=== PATIENT | male | born 1950 | race American Indian/Alaskan Native ===

== ENCOUNTER 2019-02-25 08:18 | Inpatient (IN) | payer MEDICARE ==
--- NOTE | 2019-02-25 08:40 | Emergency Department Report ---
ED General Adult HPI - General Chief complaint: Dental/Oral Stated complaint: DIFFICULTY SWOLLOWING Time Seen by Provider: 02/25/19 08:32 Source: patient, RN notes reviewed, old records reviewed Mode of arrival: Ambulatory Limitations: No Limitations - History of Present Illness Initial comments: This is a 68-year-old gentleman. The patient is not known to this provider previously. Past history includes high cholesterol, questionable elevated blood pressure. Also has a history of stroke, and cervical spine surgery in the distant past. Patient presents to the emergency room today with a complaint of inability to swallow and dysphagia to solids, for 2-3 weeks. He is able to drink liquids. He denies physical pain. Symptoms intermittently, worsened with attempting to swallow, decreased with rest. They do not radiate anywhere, and they do not have other exacerbating or relieving factors, with the exception of not attempting to eat, or drink, which decreases his symptoms. -: Gradual, week(s) Consistency: intermittent Improves with: other Worsens with: other - Related Data Previous Rx's Medication Instructions Recorded Last Taken Type Aspirin [Aspirin TAB] 325 mg PO QDAY #30 tablet 11/09/13 Unknown Rx Simvastatin 40 mg PO QHS #30 tablet 11/09/13 Unknown Rx hydroCHLOROthiazide [Hctz] 12.5 mg PO QDAY #30 capsule 11/09/13 Unknown Rx predniSONE [Deltasone] 20 mg PO QDAY #3 tab 01/21/16 Unknown Rx traMADol [Ultram] 50 mg PO Q6HR PRN #16 tablet 01/21/16 Unknown Rx Allergies Allergy/AdvReac Type Severity Reaction Status Date / Time No Known Allergies Allergy Verified 01/21/16 09:34 ED Review of Systems ROS: Stated complaint: DIFFICULTY SWOLLOWING Other details as noted in HPI Constitutional: denies: fever Eyes: denies: eye discharge ENT: denies: epistaxis Respiratory: denies: cough Cardiovascular: denies: chest pain Gastrointestinal: nausea, vomiting. 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 - Surgical History Past Surgical History?: Yes Additional Surgical History: HERNIATED DISC / CERVICAL SURGERY - Social History Smoking Status: Never Smoker Substance Use Type: None - Medications Home Medications: Home Medications Medication Instructions Recorded Confirmed Last Taken Type Aspirin [Aspirin TAB] 325 mg PO QDAY #30 tablet 11/09/13 Unknown Rx Simvastatin 40 mg PO QHS #30 tablet 11/09/13 Unknown Rx hydroCHLOROthiazide [Hctz] 12.5 mg PO QDAY #30 capsule 11/09/13 Unknown Rx predniSONE [Deltasone] 20 mg PO QDAY #3 tab 01/21/16 Unknown Rx traMADol [Ultram] 50 mg PO Q6HR PRN #16 tablet 01/21/16 Unknown Rx ED Physical Exam - General Limitations: No Limitations General appearance: alert, in no apparent distress - Head Head exam: Present: atraumatic, normocephalic - Eye Eye exam: Present: normal appearance, EOMI - ENT ENT exam: Present: normal exam, normal orophraynx, mucous membranes moist, normal external ear exam, other (patient has poor dentition. The patient is speaking in full sentences. There is no stridor.) - Neck Neck exam: Present: normal inspection, full ROM. Absent: tenderness, meningismu s - Respiratory Respiratory exam: Present: normal lung sounds bilaterally. Absent: respiratory distress - Cardiovascular Cardiovascular Exam: Present: regular rate, normal rhythm, normal heart sounds. Absent: bradycardia, tachycardia, irregular rhythm, systolic murmur, diastolic murmur, rubs, gallop - GI/Abdominal GI/Abdominal exam: Present: soft. Absent: distended, tenderness, guarding, rebound, rigid, pulsatile mass - Rectal Rectal exam: Present: deferred - Extremities Exam Extremities exam: Present: normal inspection, full ROM, other (2+ pulses noted in the bilateral upper, lower extremities. Compartments soft. No long bony tenderness. The pelvis is stable.). Absent: tenderness, pedal edema, joint swelling, calf tenderness - Back Exam Back exam: Present: normal inspection, full ROM. Absent: tenderness, CVA tenderness (R), paraspinal tenderness, vertebral tenderness - Neurological Exam Neurological exam: Present: alert, normal gait, other (Extraocular movements intact. Tongue midline. No facial droop. Facial sensation intact to light touch in the V1, V2, V3 distribution bilaterally. 5 and 5 strength in 4 extremities.. Sensation is intact to light touch in 4 extremities.). Absent: motor sensory deficit - Psychiatric Psychiatric exam: Present: normal affect, normal mood - Skin Skin exam: Present: warm, dry, intact, normal color. Absent: rash ED Course Vital Signs 02/25/19 02/25/19 02/25/19 08:23 08:37 08:45 Temperature 98.2 F Pulse Rate 91 H 71 68 Respiratory 18 25 H 19 Rate Blood Pressure 143/75 127/70 O2 Sat by Pulse 96 100 99 Oximetry 02/25/19 02/25/19 02/25/19 09:00 09:15 09:31 Temperature Pulse Rate 64 67 72 Respiratory 21 18 20 Rate Blood Pressure 131/75 131/75 131/75 O2 Sat by Pulse 100 93 95 Oximetry 02/25/19 02/25/19 02/25/19 10:27 10:31 10:45 Temperature Pulse Rate Respiratory Rate Blood Pressure 131/75 131/75 131/75 O2 Sat by Pulse 97 85 100 Oximetry 02/25/19 02/25/19 02/25/19 11:00 11:15 11:31 Temperature Pulse Rate Respiratory Rate Blood Pressure 117/65 131/75 131/75 O2 Sat by Pulse 73 L 99 86 Oximetry 02/25/19 02/25/19 02/25/19 12:29 12:34 13:14 Temperature 97.5 F L 97.5 F L 97.5 F L Pulse Rate 72 72 85 Respiratory 21 21 16 Rate Blood Pressure 122/72 122/72 83/53 O2 Sat by Pulse 99 99 97 Oximetry 02/25/19 13:29 Temperature Pulse Rate 70 Respiratory 25 H Rate Blood Pressure 120/70 O2 Sat by Pulse 96 Oximetry - Reevaluation(s) Reevaluation #1: 02/25/19 11:20 Differential diagnosis, including without limited to: Dysphagia, esophageal stricture, aspiration pneumonia Assessment and plan: 68-year-old gentleman with probable dysphasia. Plain films negative for significant disease, chronic findings noted, barium swallow study has confirmed mid esophageal stricture, with confirmed dysphagia, and minimal aspiration. Clinically, based off of the history and physical examination, do not suspect active aspiration pneumonia at this time. Patient will remain nothing by mouth. His screening laboratory studies are reviewed and appreciated. We have contacted gastroenterology nurse practitioner, Ms. Donna Sullivan, who works with Dr. Lambert Tay, she recommends the patient be maintained on nothing by mouth, her group will evaluate the patient shortly, and they will attempt to get the patient to the endoscopy lab today for definitive management and evaluation. I have discussed patient's barium swallow x-ray findings and laboratory studies, with the patient and his significant other, they have verbalized understanding, and we are awaiting gastroenterology consultation currently. Reevaluation #2: 02/25/19 13:40 Gastroenterology consultation reviewed and appreciated. They have recommended admission for inability to successfully dilated esophageal stricture. Hospital physician, Dr. Mena, who has accepted the patient to the medical service. ED Medical Decision Making - Lab Data Result diagrams: 02/25/19 08:56 02/25/19 11:03 Vital Signs 02/25/19 02/25/19 02/25/19 08:23 08:37 08:45 Temperature 98.2 F Pulse Rate 91 H 71 68 Respiratory 18 25 H 19 Rate Blood Pressure 143/75 127/70 O2 Sat by Pulse 96 100 99 Oximetry 02/25/19 02/25/19 09:00 09:15 Temperature Pulse Rate 64 67 Respiratory 21 18 Rate Blood Pressure 131/75 131/75 O2 Sat by Pulse 100 93 Oximetry Lab Results 02/25/19 02/25/19 Range/Units 08:56 08:56 WBC 7.1 (4.5-11.0) K/mm3 RBC 4.28 (3.65-5.03) M/mm3 Hgb 14.2 (11.8-15.2) gm/dl Hct 41.3 (35.5-45.6) % MCV 97 H (84-94) fl MCH 33 H (28-32) pg MCHC 35 H (32-34) % RDW 12.6 L (13.2-15.2) % Plt Count 362 (140-440) K/mm3 Sodium 132 L (137-145) mmol/L Potassium 5.4 H (3.6-5.0) mmol/L Chloride 97.3 L (98-107) mmol/L Carbon Dioxide 21 L (22-30) mmol/L Anion Gap 19 mmol/L BUN 17 (9-20) mg/dL Creatinine 1.0 (0.8-1.5) mg/dL Estimated GFR > 60 ml/min BUN/Creatinine Ratio 17 % Glucose 99 (75-100) mg/dL Calcium 9.3 (8.4-10.2) mg/dL Magnesium 2.20 (1.7-2.3) mg/dL Total Creatine Kinase 104 (55-170) units/L - Radiology Data Radiology results: report reviewed, image reviewed Critical care attestation.: If time is entered above; I have spent that time in minutes in the direct care of this critically ill patient, excluding procedure time. ED Disposition Clinical Impression: Dysphagia, Esophageal stricture Disposition: OP ADMIT IP TO THIS HOSP Is pt being admited?: Yes Condition: Good Referrals: EDILMA TINSLEY MD [Primary Care Provider] - 3-5 Days
[2019-02-25 09:05] LABS: Hematocrit 41.3 % (35.5-45.6); Hemoglobin 14.2 gm/dl (11.8-15.2); Mean Corpuscular HGB Conc 35 % (32-34); Mean Corpuscular Volume 97 fl (84-94); Platelet Count 362 K/mm3 (140-440); Red Blood Count 4.28 M/mm3 (3.65-5.03); Red Cell Distribution Width 12.6 % (13.2-15.2)
[2019-02-25 09:23] LABS: BUN/Creatinine Ratio 17; Blood Urea Nitrogen 17 mg/dL (9-20); Calcium 9.3 mg/dL (8.4-10.2); Hemolysis Index 16
--- NOTE | 2019-02-25 10:23 | XRay Report ---
CHEST 2 VIEWS INDICATION: Dysphagia. COMPARISON: None similar. FINDINGS: PA and lateral chest radiographs demonstrate normal cardiomediastinal silhouette. Clear, well-expanded lungs. No pleural effusions or CHF. Mid to lower thoracic spine degenerative osteophytes. Demineralized bones. CONCLUSION: No acute chest process, as described. Thank you for the opportunity to participate in this patient's care.
--- NOTE | 2019-02-25 10:27 | XRay Report ---
NECK SOFT TISSUE RADIOGRAPHS INDICATION: Dysphagia. COMPARISON: None similar. FINDINGS: AP and lateral radiographs demonstrate normal prevertebral soft tissues and preserved airway. Demineralized bones with multilevel degenerative changes, including C6-C7 and C7-T1 moderate to severe disc narrowing and degenerative spurring. C3-C4 anterior plate and screw fusion hardware also seen. Grossly intact craniocervical articulation. Atherosclerotic bilateral carotid and aortic arch calcifications. Clear visualized lung apices. CONCLUSION: No acute neck soft tissue radiographic abnormality with various other findings, including C3-C4 fusion and multilevel cervical spondylosis, as described. Thank you for the opportunity to participate in this patient's care.
--- NOTE | 2019-02-25 10:47 | Fluoroscopy Report ---
BARIUM SWALLOW INDICATION: Dysphagia. COMPARISON: None similar. IMAGES/CINE CLIPS: 24 FINDINGS: Barium swallow performed. Patient swallowed thick barium without any difficulty as also tolerated effervescent granules well. Initial few swallows with thick barium demonstrate dilated proximal to mid esophagus up to the level of the mary lou with abrupt, moderate to severe conical tapering and grossly smooth haddad. Some contrast noted passing beyond and opacifying the lower half of the esophagus, GE junction and into grossly unremarkable stomach, duodenum and proximal opacified small bowel. Slight aspiration also noted. Demineralized bones with multilevel degenerative changes and cervical fusion hardware also seen. CONCLUSION: Mid-esophageal stricture/narrowing, dilated proximal esophagus and slight aspiration noted with various other findings, including spinal degenerative and postsurgical changes, as described above. GI/endoscopic correlation suggested. I phoned the above results to Dr. Humphries in the ER, 10:40 AM, 02/25/2019. Thank you for the opportunity to participate in this patient's care.
[2019-02-25] MEDS ORDERED: NACL 0.9% 1000 ML 1,000 ML IV SCH (12:00)
--- NOTE | 2019-02-25 12:08 | Gastroenterology Consultation ---
<ABDOUL GLASGOW - Last Filed: 02/25/19 12:09> History of Present Illness - Reason for Consult Consult date: 02/25/19 dysphagia Requesting physician: SYBIL CHRISTY - History of Present Illness Patient is a 68 y/o male with PMH of HTN, CVA (2012 with left sided deficit), and arthritis who presented to ED with dysphagia to which GI has been consulted. This morning patient was resting in bed w/o acute distress. Reports difficulty swallowing both solids and liquids x 3 weeks. Admits to associated chest discomfort and 15lb wt loss. Denies fever, SOB, abd pain, odynophagia, signs of bleeding, or LGI symptoms. No N/V but states his food regurgitates back up after eating. On ASA at home. No hx of GERD. Former smoker. No Fhx of GI cancers. Past History Past Medical History: other (per HPI) Past Surgical History: Other (HERNIATED DISC / CERVICAL SURGERY) Social history: other (former smoker) Medications and Allergies Allergies Allergy/AdvReac Type Severity Reaction Status Date / Time No Known Allergies Allergy Verified 01/21/16 09:34 Home Medications Medication Instructions Recorded Confirmed Last Taken Type Aspirin [Aspirin TAB] 325 mg PO QDAY #30 tablet 11/09/13 Unknown Rx Simvastatin 40 mg PO QHS #30 tablet 11/09/13 Unknown Rx hydroCHLOROthiazide [Hctz] 12.5 mg PO QDAY #30 capsule 11/09/13 Unknown Rx predniSONE [Deltasone] 20 mg PO QDAY #3 tab 01/21/16 Unknown Rx traMADol [Ultram] 50 mg PO Q6HR PRN #16 tablet 01/21/16 Unknown Rx Active Meds: Active Medications Sodium Chloride (Nacl 0.9% 1000 Ml) 1,000 mls @ 50 mls/hr IV DIRECT LETITIA medications reviewed/updated as required Review of Systems - Review of Systems All systems: negative Gastrointestinal: other (dysphagia) Exam - Constitutional Vital Signs: Temp Pulse Resp BP Pulse Ox 98.2 F 72 20 131/75 86 02/25/19 08:23 02/25/19 09:31 02/25/19 09:31 02/25/19 11:31 02/25/19 11:31 General appearance: no acute distress - EENT Eyes: PERRL, EOM intact ENT: hearing intact - Respiratory Respiratory: bilateral: CTA - Cardiovascular Rhythm: regular - Gastrointestinal General gastrointestinal: Present: soft, non-tender, non-distended, normal bowel sounds - Neurologic Neurological: alert and oriented x3 - Labs CBC & Chem 7: 02/25/19 08:56 02/25/19 11:03 Lab Results: Laboratory Results - last 24 hr 02/25/19 02/25/19 02/25/19 08:56 08:56 11:03 WBC 7.1 RBC 4.28 Hgb 14.2 Hct 41.3 MCV 97 H MCH 33 H MCHC 35 H RDW 12.6 L Plt Count 362 Sodium 132 L Potassium 5.4 H 5.0 Chloride 97.3 L Carbon Dioxide 21 L Anion Gap 19 BUN 17 Creatinine 1.0 Estimated GFR > 60 BUN/Creatinine Ratio 17 Glucose 99 Calcium 9.3 Magnesium 2.20 Total Creatine Kinase 104 Assessment and Plan 1.dysphagia -patient reports difficulty swallowing both solids and liquids x 3 weeks with associated chest discomfort and wt loss of 15lbs -barium swallow upon showed mid-esophageal stricture/narrowing,dilated proximal esophagus, and slight aspiration -will schedule for EGD today for further evaluation -Keep NPO -continue supportive care -will follow <ANDERSON PRO R - Last Filed: 02/25/19 12:55> Medications and Allergies Active Meds: Active Medications Sodium Chloride (Nacl 0.9% 1000 Ml) 1,000 mls @ 50 mls/hr IV DIRECT LETITIA Exam - Constitutional Vital Signs: Temp Pulse Resp BP Pulse Ox 97.5 F L 72 21 122/72 99 02/25/19 12:34 02/25/19 12:34 02/25/19 12:34 02/25/19 12:34 02/25/19 12:34 - Labs CBC & Chem 7: 02/25/19 08:56 02/25/19 11:03 Lab Results: Laboratory Results - last 24 hr 02/25/19 02/25/19 02/25/19 08:56 08:56 11:03 WBC 7.1 RBC 4.28 Hgb 14.2 Hct 41.3 MCV 97 H MCH 33 H MCHC 35 H RDW 12.6 L Plt Count 362 Sodium 132 L Potassium 5.4 H 5.0 Chloride 97.3 L Carbon Dioxide 21 L Anion Gap 19 BUN 17 Creatinine 1.0 Estimated GFR > 60 BUN/Creatinine Ratio 17 Glucose 99 Calcium 9.3 Magnesium 2.20 Total Creatine Kinase 104 Assessment and Plan Pt with acute onset dysphagia x 3 wks, with weight loss. Rare HB. Ba swallow as noted. Worrisome for neoplasm. Will do EGD/dil/biopsy today.
[2019-02-25] MEDS ORDERED: NACL 0.9% 1000 ML 1,000 ML ONE (12:51)
--- NOTE | 2019-02-25 13:13 | Post Operative Note ---
Pre-op diagnosis: Esophageal stricture Post-op diagnosis: other (Mid-esophageal stricture, with ulcerated mucosal tear) Findings: 1. Esophageal stricture located at 28 cm from incisors, unable to pass scope. Deep ulcer at stricture, barely seen. 2. Proximal esophageal dilation with meat in it, removed with snare. 3. Residual barium coating parts of esophagus, but mucosa o/w normal. Procedure: Esophagoscopy with foreign body removal Anesthesia: MAC Surgeon: ANDERSON PRO Estimated blood loss: none Pathology: none Condition: stable Disposition: other (Back to ER. Should be admitted for further evaluation with chest CT, and then decision regarding repeat EGD attempt and dilation, etc.)
[2019-02-25] MEDS ORDERED: DIPRIVAN 10 MG/ML IV ONE (13:25)
--- NOTE | 2019-02-25 14:30 | Operative Report ---
PROCEDURE: Upper endoscopy with foreign body removal. PREOPERATIVE DIAGNOSIS: Mid esophageal stricture. POSTOPERATIVE DIAGNOSIS: Mid esophageal stricture, with deep ulceration at stricture and food impaction. SEDATION: MAC by Anesthesia. HISTORY: The patient is a 68-year-old man with a 3-week history of acute onset of dysphagia. He denies significant GERD symptoms. He has no cough or shortness of breath. He has lost 15 pounds. Barium swallow showed tight stricture at mid esophagus through which some barium passed into the stomach. DESCRIPTION OF PROCEDURE: Indications, risks, and benefits were explained and consent was obtained. The patient was placed in left lateral decubitus position and sedated. [id number] video upper endoscope was passed through the mouth and oropharynx into the mid esophagus. There, a piece of chicken was encountered and a tight stricture was encountered. On looking closely into the stricture, a deep ulcerated area of mucosal disruption was noted and therefore, no attempt was made to dilation. The piece of chicken was removed with a snare. FINDINGS: 1. Proximal esophagus is dilated with barium staining the mucosa. A lot of the barium was aspirated out and rinsed off with the lens washer and the underlying mucosa was normal. 2. Tight stricture noted at 28 cm from the incisors through which the scope would not pass. On placing the scope directly at the stricture, a deep area of mucosal ulceration was noted that appeared to be fairly small on current visualization. However, because of this, the decision was made not to attempt dilation until further information could be obtained. 3. There was a piece of chicken sitting at the stricture that initially precluded visualization and was grasped with a snare and removed. The patient tolerated the procedure well without immediate complications. IMPRESSION: 1. Tight esophageal stricture at 28 cm from incisors with deep area of ulceration in the mucosa. Biopsies not obtained and dilation not performed. 2. Proximal esophageal dilation with chicken meat in it that was removed with snare. PLAN: 1. Would recommend chest CT and admission for further evaluation. 2. Empiric proton pump inhibitors IV. 3. Keep n.p.o. for now. JOB# [id number] C/NTS
[2019-02-25 14:46] LABS: Alanine Aminotransferase 8 units/L (7-56); Albumin 3.4 g/dL (3.9-5)
[2019-02-25 14:47] LABS: Bilirubin,Direct < 0.2 mg/dL (0-0.2)
[2019-02-25] MEDS ORDERED: ZOFRAN IV PRN (15:05)
[2019-02-25] MEDS ORDERED: PROVENTIL IH PRN (15:05)
[2019-02-25] MEDS ORDERED: SODIUM CHLORIDE FLUSH SYRINGE 10 ML IV PRN (15:05)
[2019-02-25] MEDS ORDERED: TYLENOL PO PRN (15:05)
--- NOTE | 2019-02-25 15:05 | History and Physical Report ---
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 Pt states that he has experienced dysphagia with solid food over the past 1 month with progressively worsening symptoms over the past 2 weeks. Pt also acknowledges discomfort in his chest but points to the epigastric region on exam as the source of discomfort after attempted swallowing. Pt acknowledges 15 lbs unintentional weight loss, feeling as if food "gets stuck in my throat". Pt transported to [facility] via private vechicle for evaluation. Pt seen and evaluated in ED and found to have Dysphagia secondary to Esophageal Stricture complicated by Esophageal tear. Pt denies fever, chills, palpitations, NVD, Chest Pain, SOB, Abdominal Pain, Odynophagia, Skin Rash, or recent ill contacts. Previous admission on 10/20/13 reviewed. All listed medication reconciled at time of admission. GI consulted in ED and patient taken to OR for intervention. Past History Past Medical History: arthritis, hypertension, stroke, other (per HPI) Past Surgical History: Other (HERNIATED DISC / CERVICAL SURGERY) Social history: single, other (former smoker). denies: smoking, alcohol abuse, prescription drug abuse Family history: hypertension Medications and Allergies Allergies Allergy/AdvReac Type Severity Reaction Status Date / Time No Known Allergies Allergy Verified 01/21/16 09:34 Home Medications Medication Instructions Recorded Confirmed Last Taken Type Aspirin [Aspirin TAB] 325 mg PO QDAY #30 tablet 11/09/13 Unknown Rx Simvastatin 40 mg PO QHS #30 tablet 11/09/13 Unknown Rx hydroCHLOROthiazide [Hctz] 12.5 mg PO QDAY #30 capsule 11/09/13 Unknown Rx predniSONE [Deltasone] 20 mg PO QDAY #3 tab 01/21/16 Unknown Rx traMADol [Ultram] 50 mg PO Q6HR PRN #16 tablet 01/21/16 Unknown Rx Active Meds: Active Medications Sodium Chloride (Nacl 0.9% 1000 Ml) 1,000 mls @ 50 mls/hr IV DIRECT LETITIA Review of Systems Constitutional: weight loss, no weight gain, no fever, no chills, no sweats Ears, nose, mouth and throat: no ear pain, no ear discharge, no tinnitis, no decreased hearing, no nose pain, no nasal congestion Cardiovascular: no chest pain, no orthopnea, no palpitations, no rapid/irregular heart beat, no edema, no syncope Respiratory: no cough, no shortness of breath Gastrointestinal: indigestion, no abdominal pain, no nausea, no vomiting, no diarrhea Genitourinary Male: no hematuria, no flank pain, no discharge, no urinary frequency, no urinary hesitancy Rectal: no pain, no incontinence, no bleeding Musculoskeletal: no neck stiffness, no neck pain, no shooting arm pain, no low back pain Integumentary: no rash, no pruritis, no redness, no sores, no wounds Neurological: no transient paralysis, no paralysis, no weakness, no parathesias, no numbness, no tingling, no seizures Psychiatric: no anxiety, no memory loss, no change in sleep habits, no change in appetite, no change in libido, no suicidal ideation Endocrine: no cold intolerance, no heat intolerance, no polyphagia, no excessive thirst, no polydipsia, no nocturia Hematologic/Lymphatic: no easy bruising, no easy bleeding, no lymphadenopathy Allergic/Immunologic: no urticaria, no allergic rhinitis, no wheezing, no pe rsistent infections Exam - Constitutional Vitals: Temp Pulse Resp BP Pulse Ox 97.5 F L 70 21 133/74 97 02/25/19 13:14 02/25/19 13:44 02/25/19 13:44 02/25/19 13:44 02/25/19 13:44 General appearance: Present: mild distress, cachectic - EENT Eyes: Present: PERRL ENT: hearing intact, clear oral mucosa - Neck Neck: Present: supple, normal ROM - Respiratory Respiratory effort: normal Respiratory: bilateral: CTA - Cardiovascular Heart Sounds: Present: S1 & S2. Absent: rub, click - Extremities Extremities: pulses symmetrical, No edema Peripheral Pulses: within normal limits - Abdominal General gastrointestinal: Present: soft, non-tender, non-distended, normal bowel sounds Male genitourinary: Present: normal - Integumentary Integumentary: Present: clear, warm, dry - Musculoskeletal Musculoskeletal: left sided weakness - Psychiatric Psychiatric: appropriate mood/affect, intact judgment & insight, memory intact - Neurologic Neurologic: CNII-XII intact, focal deficits, no moves all extremities, no gait normal Results - Labs CBC & Chem 7: 02/25/19 08:56 02/25/19 11:03 Labs: Abnormal lab results 02/25/19 02/25/19 02/25/19 Range/Units 08:56 08:56 13:56 MCV 97 H (84-94) fl MCH 33 H (28-32) pg MCHC 35 H (32-34) % RDW 12.6 L (13.2-15.2) % Sodium 132 L (137-145) mmol/L Potassium 5.4 H (3.6-5.0) mmol/L Chloride 97.3 L (98-107) mmol/L Carbon Dioxide 21 L (22-30) mmol/L Albumin 3.4 L (3.9-5) g/dL Assessment and Plan - Patient Problems (1) Esophageal stricture Current Visit: Yes Status: Acute Plan to address problem: GI consulted in ED, Pt to OR for interventions, serial abdominal exam, diet as tolerated, advance diet as per GI recommendations, Aspiration precautions. (2) HTN (hypertension) Current Visit: Yes Status: Acute Qualifiers: Hypertension type: essential hypertension Qualified Code(s): I10 - Essential (primary) hypertension Plan to address problem: Monitor BP q shift, continue medical management. (3) Osteoarthritis Current Visit: Yes Status: Acute Qualifiers: Spinal region: cervical Plan to address problem: NSAID therapy PRN, supportive care. (4) Severe malnutrition Current Visit: Yes Status: Acute Plan to address problem: Encourage increased protein intake, protein supplementation. (5) Hyponatremia syndrome Current Visit: Yes Status: Acute Plan to address problem: IVF resuscitation therapy, repeat bmp, (6) Acidosis Current Visit: Yes Status: Acute Plan to address problem: IVF resuscitation therapy, repeat bmp (7) DVT prophylaxis Current Visit: Yes Status: Acute Plan to address problem: SCD to BLE while in bed,
[2019-02-25] MEDS ORDERED: ULTRAM PO PRN (15:06)
--- NOTE | 2019-02-25 16:50 | Cat Scan Report ---
PROCEDURE: CT ANGIO CHEST TECHNIQUE: CT chest CT angiogram with intravenous contrast HISTORY: dysphagia, esophageal stricuture weight loss COMPARISONS: FINDINGS: There is marked distention of the upper thoracic esophagus with transition mid to distal esophagus. S ome residual contrast material noted. There is contrast material within the colon. No evidence for mediastinal pathologic lymph node enlargement Heart and great vessels are unremarkable. Mild dependent atelectasis at the lung bases. No confluent pulmonary infiltrate identified. No pleura l fluid collection seen. Residual contrast material noted within the stomach. IMPRESSION: Marked distention of the upper esophagus consistent with esophageal stricture No additional abnormality identified. This document is electronically signed by Bryson Shane MD., Feb 25 2019 04:48:45 PM ET
[2019-02-25] MEDS: NACL 0.45% 1000 ML 1,000 ML IV SCH (17:32)
[2019-02-25] MEDS ORDERED: PNEUMOVAX 23 IM ONE (17:44)
[2019-02-25 20:07] LABS: Bilirubin,Urine NEG (Negative); Blood,Urine SM (Negative); Color,Urine Yellow (Yellow); Mucus,Urine FEW /HPF; Protein,Urine <15 mg/dL mg/dL (Negative); Urobilinogen,Urine < 2.0 mg/dL (<2.0); WBC,Urine < 1.0 /HPF (0.0-6.0)
[2019-02-25] MEDS ORDERED: NON-FORMULARY (Simvastatin [Simvastatin] 40 MG) PO SCH (22:00)
[2019-02-25] MEDS ORDERED: PRAVACHOL PO SCH (22:00)
[2019-02-25] MEDS: PRAVACHOL PO SCH (22:49)
[2019-02-25] MEDS: SODIUM CHLORIDE FLUSH SYRINGE 10 ML IV SCH (22:49)
[2019-02-26 06:31] LABS: Basophils # (Auto) 0.1 K/mm3 (0.0-0.1); Basophils % (Auto) 0.9 % (0.0-1.8); Eosinophils % (Auto) 0.5 % (0.0-4.3); Hematocrit 38.9 % (35.5-45.6); Hemoglobin 13.1 gm/dl (11.8-15.2); Lymphocytes # (Auto) 1.8 K/mm3 (1.2-5.4); Lymphocytes % (Auto) 18.3 % (13.4-35.0); Mean Corpuscular HGB Conc 34 % (32-34); Mean Corpuscular Volume 98 fl (84-94); Monocytes # (Auto) 0.6 K/mm3 (0.0-0.8); Monocytes % (Auto) 5.7 % (0.0-7.3); Platelet Count 326 K/mm3 (140-440); Red Blood Count 3.99 M/mm3 (3.65-5.03); Red Cell Distribution Width 12.9 % (13.2-15.2)
[2019-02-26 06:53] LABS: BUN/Creatinine Ratio 16; Blood Urea Nitrogen 14 mg/dL (9-20); Calcium 8.9 mg/dL (8.4-10.2); Hemolysis Index 3
[2019-02-26] MEDS ORDERED: ASPIRIN PO SCH (10:00)
[2019-02-26] MEDS: HCTZ PO SCH (11:05)
[2019-02-26] MEDS: DELTASONE PO SCH (11:05)
[2019-02-26] MEDS: SODIUM CHLORIDE FLUSH SYRINGE 10 ML IV SCH ×2 (11:05→22:01)
[2019-02-26] MEDS ORDERED: PNEUMOVAX 23 IM ONE (12:00)
--- NOTE | 2019-02-26 14:07 | Gastroenterology Progress Note ---
Assessment and Plan 1.dysphagia -patient reports difficulty swallowing both solids and liquids x 3 weeks with associated chest discomfort and wt loss of 15lbs -barium swallow upon showed mid-esophageal stricture/narrowing,dilated proximal esophagus, and slight aspiration -s/p EGD yesterday showed esophageal stricture (unable to pass scope) with deep ulcer and proximal esophageal dilation with meat in it (removed with snare) -CTA chest was negative for mediastinal pathology (mass) -clinically, patient is stable with continued c/o dysphagia with water. No abd pain or N/V. -will schedule for repeat EGD tomorrow with possible dilation (risk vs benefits discussed with patient per Dr. Tay with understanding voiced and agreemetn to proceed per pt) -NPO after MN -continue clear liquids if tolerated -medications should be liquid or IV for now -continue supportive care -will follow Subjective Date of service: 02/26/19 Principal diagnosis: dysphagia Interval history: No acute distress. Reports continued dysphagia with water. No abd pain or N/v. Objective - Constitutional Vitals: Temp Pulse Resp BP Pulse Ox 99.0 F 88 14 123/70 90 02/26/19 07:50 02/26/19 10:00 02/26/19 07:50 02/26/19 07:50 02/26/19 10:00 General appearance: no acute distress - Respiratory Respiratory: bilateral: CTA - Cardiovascular Rhythm: regular - Gastrointestinal General gastrointestinal: Present: soft, non-tender, non-distended, normal bowel sounds - Neurologic Neurological: alert and oriented x3 - Labs CBC & Chem 7: 02/26/19 05:14 02/26/19 05:14 Labs: Laboratory Results - last 24 hr 02/25/19 02/25/19 02/25/19 13:56 13:56 19:33 WBC RBC Hgb Hct MCV MCH MCHC RDW Plt Count Lymph % (Auto) [place] % (Auto) Eos % (Auto) Baso % (Auto) Lymph # [place] # Eos # Baso # Seg Neutrophils % Seg Neutrophils # Sodium Potassium Chloride Carbon Dioxide Anion Gap BUN Creatinine Estimated GFR BUN/Creatinine Ratio Glucose Lactic Acid 1.50 Calcium Magnesium 2.10 Total Bilirubin 0.70 Direct Bilirubin < 0.2 AST 15 ALT 8 Alkaline Phosphatase 67 Total Protein 6.6 Albumin 3.4 L Albumin/Globulin Ratio 1.1 Urine Color Yellow Urine Turbidity Clear Urine pH 5.0 Ur Specific [place] 1.058 H Urine Protein <15 mg/dl Urine Glucose (UA) Neg Urine Ketones 20 Urine Blood Sm Urine Nitrite Neg Urine Bilirubin Neg Urine Urobilinogen < 2.0 Ur Leukocyte Esterase Neg Urine WBC (Auto) < 1.0 Urine RBC (Auto) 3.0 U Epithel Cells (Auto) < 1.0 Urine Mucus Few 02/26/19 02/26/19 05:14 05:14 WBC 9.6 RBC 3.99 Hgb 13.1 Hct 38.9 MCV 98 H MCH 33 H MCHC 34 RDW 12.9 L Plt Count 326 Lymph % (Auto) 18.3 [place] % (Auto) 5.7 Eos % (Auto) 0.5 Baso % (Auto) 0.9 Lymph # 1.8 [place] # 0.6 Eos # 0.0 Baso # 0.1 Seg Neutrophils % 74.6 H Seg Neutrophils # 7.2 Sodium 134 L Potassium 4.7 Chloride 96.8 L Carbon Dioxide 18 L Anion Gap 24 BUN 14 Creatinine 0.9 Estimated GFR > 60 BUN/Creatinine Ratio 16 Glucose 74 L Lactic Acid Calcium 8.9 Magnesium Total Bilirubin Direct Bilirubin AST ALT Alkaline Phosphatase Total Protein Albumin Albumin/Globulin Ratio Urine Color Urine Turbidity Urine pH Ur Specific [place] Urine Protein Urine Glucose (UA) Urine Ketones Urine Blood Urine Nitrite Urine Bilirubin Urine Urobilinogen Ur Leukocyte Esterase Urine WBC (Auto) Urine RBC (Auto) U Epithel Cells (Auto) Urine Mucus
--- NOTE | 2019-02-26 14:25 | Progress Note ---
Assessment and Plan Assessment and plan: Patient is a 68 yo man with a history of CVA with left side deficits, hypertension, oa and esophageal stricture who presented to [facility] ED with dysphagia and unintentional weight loss. * EGD showed esophageal stricture (unable to pass scope) with deep ulcer and proximal esophageal dilation with meat in it (removed with snare) * CTA chest was negative for mediastinal pathology (mass) (1) Esophageal stricture: GI consulted in ED, Pt to OR for interventions, serial abdominal exam, diet as tolerated, advance diet as per GI recommendations, Aspiration precautions. (2) HTN (hypertension) Monitor BP q shift, continue medical management. (3)Osteoarthritis: NSAID therapy PRN, supportive care. (4) Severe malnutrition Encourage increased protein intake, protein supplementation. (5) Hyponatremia syndrome IVF resuscitation therapy, repeat bmp, (6) Acidosis Current Visit: IVF resuscitation therapy, repeat bmp (7) DVT prophylaxis: SCD to BLE while in bed, Repeat EGD History Interval history: Patient was seen and examined. Follow-up on current diagnosis of Dysphagia. No Overnight events reported to me. Patient denies any shortness breath, nausea/vomiting or severe headaches. Imaging, nursing note, chart, labs and old chart reviewed. Discussed with patient. Hospitalist Physical - Physical exam Narrative exam: Gen: thin frail, bmi 18.3, NAD, Awake, Alert, Orientated x 2 HEENT: NCAT, EOMI, PERRL, OP Clear Neck: supple, no adenopathy, no thyromegaly, no JVD CVS/Heart: RRR, normal S1S2, pulses present bilaterally Chest/Lungs: CTA B, Symmetrical chest expansion, good air entry bilaterally GI/Abdomen: soft, NTND, good bowel sounds, no guarding or rebound /Bladder: no suprapubic tenderness, no CVA or paraspinal tenderness Extermity/Skin: no c/c/e, no obvious rash MSK: FROM x 4 Neuro: CN 2-12 grossly intact, no new focal deficits Psych: calm - Constitutional Vitals: Temp Pulse Resp BP Pulse Ox 99.0 F 88 14 123/70 90 02/26/19 07:50 02/26/19 10:00 02/26/19 07:50 02/26/19 07:50 02/26/19 10:00 General appearance: Present: cachectic. Absent: mild distress Results - Labs CBC & Chem 7: 05/02/19 05:14 02/26/19 05:14 Labs: Laboratory Last Values WBC 9.6 K/mm3 (4.5-11.0) 02/26/19 05:14 RBC 3.99 M/mm3 (3.65-5.03) 02/26/19 05:14 Hgb 13.1 gm/dl (11.8-15.2) 02/26/19 05:14 Hct 38.9 % (35.5-45.6) 02/26/19 05:14 MCV 98 fl (84-94) H 02/26/19 05:14 MCH 33 pg (28-32) H 02/26/19 05:14 MCHC 34 % (32-34) 02/26/19 05:14 RDW 12.9 % (13.2-15.2) L 02/26/19 05:14 Plt Count 326 K/mm3 (140-440) 02/26/19 05:14 Lymph % (Auto) 18.3 % (13.4-35.0) 02/26/19 05:14 [place] % (Auto) 5.7 % (0.0-7.3) 02/26/19 05:14 Eos % (Auto) 0.5 % (0.0-4.3) 02/26/19 05:14 Baso % (Auto) 0.9 % (0.0-1.8) 02/26/19 05:14 Lymph # 1.8 K/mm3 (1.2-5.4) 02/26/19 05:14 [place] # 0.6 K/mm3 (0.0-0.8) 02/26/19 05:14 Eos # 0.0 K/mm3 (0.0-0.4) 02/26/19 05:14 Baso # 0.1 K/mm3 (0.0-0.1) 02/26/19 05:14 Seg Neutrophils % 74.6 % (40.0-70.0) H 02/26/19 05:14 Seg Neutrophils # 7.2 K/mm3 (1.8-7.7) 02/26/19 05:14 Sodium 134 mmol/L (137-145) L 02/26/19 05:14 Potassium 4.7 mmol/L (3.6-5.0) 02/26/19 05:14 Chloride 96.8 mmol/L (98-107) L 02/26/19 05:14 Carbon Dioxide 18 mmol/L (22-30) L 02/26/19 05:14 Anion Gap 24 mmol/L 02/26/19 05:14 BUN 14 mg/dL (9-20) 02/26/19 05:14 Creatinine 0.9 mg/dL (0.8-1.5) 02/26/19 05:14 Estimated GFR > 60 ml/min 02/26/19 05:14 BUN/Creatinine Ratio 16 % 02/26/19 05:14 Glucose 74 mg/dL (75-100) L 02/26/19 05:14 Lactic Acid 1.50 mmol/L (0.7-2.0) 02/25/19 13:56 Calcium 8.9 mg/dL (8.4-10.2) 02/26/19 05:14 Magnesium 2.10 mg/dL (1.7-2.3) 02/25/19 13:56 Total Bilirubin 0.70 mg/dL (0.1-1.2) 02/25/19 13:56 Direct Bilirubin < 0.2 mg/dL (0-0.2) 02/25/19 13:56 AST 15 units/L (5-40) 02/25/19 13:56 ALT 8 units/L (7-56) 02/25/19 13:56 Alkaline Phosphatase 67 units/L (35-129) 02/25/19 13:56 Total Creatine Kinase 104 units/L (55-170) 02/25/19 08:56 Total Protein 6.6 g/dL (6.3-8.2) 02/25/19 13:56 Albumin 3.4 g/dL (3.9-5) L 02/25/19 13:56 Albumin/Globulin Ratio 1.1 % 02/25/19 13:56 Urine Color Yellow (Yellow) 02/25/19 19:33 Urine Turbidity Clear (Clear) 02/25/19 19:33 Urine pH 5.0 (5.0-7.0) 02/25/19 19:33 Ur Specific [place] 1.058 (1.003-1.030) H 02/25/19 19:33 Urine Protein <15 mg/dl mg/dL (Negative) 02/25/19 19:33 Urine Glucose (UA) Neg mg/dL (Negative) 02/25/19 19:33 Urine Ketones 20 mg/dL (Negative) 02/25/19 19:33 Urine Blood Sm (Negative) 02/25/19 19:33 Urine Nitrite Neg (Negative) 02/25/19 19:33 Urine Bilirubin Neg (Negative) 02/25/19 19:33 Urine Urobilinogen < 2.0 mg/dL (<2.0) 02/25/19 19:33 Ur Leukocyte Esterase Neg (Negative) 02/25/19 19:33 Urine WBC (Auto) < 1.0 /HPF (0.0-6.0) 02/25/19 19:33 Urine RBC (Auto) 3.0 /HPF (0.0-6.0) 02/25/19 19:33 U Epithel Cells (Auto) < 1.0 /HPF (0-13.0) 02/25/19 19:33 Urine Mucus Few /HPF 02/25/19 19:33 Active Medications - Current Medications Current Medications: Generic Name Dose Route Start Last Admin Trade Name Freq PRN Reason Stop Dose Admin Acetaminophen 650 mg 02/25/19 15:05 Tylenol PO Q4H PRN Pain MILD(1-3)/Fever >100.5/[place] Albuterol 2.5 mg 02/25/19 15:05 Proventil IH Q4HRT PRN Shortness Of Breath Hydrochlorothiazide 12.5 mg 02/26/19 10:00 02/26/19 11:05 Hctz PO 12.5 mg QDAY LETITIA Administration Sodium Chloride 1,000 mls @ 42 mls/hr 02/25/19 16:00 02/25/19 17:32 Nacl 0.45% 1000 Ml IV 42 mls/hr DIRECT LETITIA Administration Ondansetron HCl 4 mg 02/25/19 15:05 Zofran IV Q8H PRN Nausea And Vomiting Pantoprazole Sodium 40 mg 02/26/19 15:00 Protonix IV QDAY LETITIA Pravastatin Sodium 80 mg 02/25/19 22:00 02/25/19 22:49 Pravachol PO 80 mg QHS LETITIA Administration Prednisone 20 mg 02/26/19 10:00 02/26/19 11:05 Deltasone PO 20 mg QDAY LETITIA Administration Sodium Chloride 10 ml 02/25/19 22:00 02/26/19 11:05 Sodium Chloride Flush Syringe 10 Ml IV 10 ml BID LETITIA Administration Sodium Chloride 10 ml 02/25/19 15:05 Sodium Chloride Flush Syringe 10 Ml IV PRN PRN LINE FLUSH Tramadol HCl 50 mg 02/25/19 15:06 Ultram PO Q6HR PRN Pain
[2019-02-26] MEDS: PROTONIX IV SCH (17:53)
[2019-02-26] MEDS: NACL 0.45% 1000 ML 1,000 ML IV SCH (22:00)
[2019-02-26] MEDS: PRAVACHOL PO SCH (22:01)
--- NOTE | 2019-02-27 11:13 | Anesthesia Day of Surgery ---
Anesthesia Day of Surgery - Day of Surgery Patient Examined: Yes Patient H&P Reviewed: Yes Patient is NPO: Yes Beta Blockers: No
--- NOTE | 2019-02-27 11:15 | Anesthesia Consultation ---
Anesthesia Consult and Med Hx Date of service: 02/27/19 - Airway Anesthetic Teeth Evaluation: Good ROM Head & Neck: Adequate Mallampati Class: Class I Intubation Access Assessment: Probably Good - Pulmonary Exam CTA: Yes - Cardiac Exam Cardiac Exam: No Murmur - Pre-Operative Health Status ASA Pre-Surgery Classification: ASA3 Proposed Anesthetic Plan: MAC - Pulmonary Hx Smoking: Yes Hx Asthma: No COPD: No Hx Pneumonia: No - Cardiovascular System Hx Hypertension: Yes Hx Cardia Arrhythmia: Yes (Afib ) - Central Nervous System CVA: Yes Hx Psychiatric Problems: No - Endocrine Hx End Stage Renal Disease: No Hx Hyperthyroidism: Yes - Other Systems Hx Cancer: No
[2019-02-27] MEDS ORDERED: WATER FOR IRRIG STERILE IR ONE (11:33)
--- NOTE | 2019-02-27 11:36 | Progress Note ---
Assessment and Plan Assessment and plan: Patient is a 68 yo man with a history of CVA with left side deficits, hypertension, oa and esophageal stricture who presented to [facility] ED with dysphagia and unintentional weight loss. * EGD showed esophageal stricture (unable to pass scope) with deep ulcer and proximal esophageal dilation with meat in it (removed with snare) * CTA chest was negative for mediastinal pathology (mass) (1) Esophageal stricture: GI consulted in ED, advance diet as per GI recommendations, Aspiration precautions. (2) HTN (hypertension) Monitor BP q shift, continue medical management. (3) Osteoarthritis: supportive care. (4) Severe malnutrition Encourage increased protein intake, protein supplementation. (5) Hyponatremia syndrome IVF resuscitation therapy, repeat bmp, (6) Acidosis Current Visit: IVF resuscitation therapy, repeat bmp (7) DVT prophylaxis: SCD to BLE while in bed, sq heparin to start tomorrow Repeat EGD today, d/c planning based upon results History Interval history: Patient was seen and examined. Follow-up on current diagnosis of Dysphagia. No Overnight events reported to me. Patient denies any shortness breath, nausea/vomiting or severe headaches. Imaging, nursing note, chart, labs and old chart reviewed. Discussed with patient. Hospitalist Physical - Physical exam Narrative exam: Gen: thin frail, bmi 18.3, NAD, Awake, Alert, Orientated x 2 HEENT: NCAT, EOMI, PERRL, OP Clear Neck: supple, no adenopathy, no thyromegaly, no JVD CVS/Heart: RRR, normal S1S2, pulses present bilaterally Chest/Lungs: CTA B, Symmetrical chest expansion, good air entry bilaterally GI/Abdomen: soft, NTND, good bowel sounds, no guarding or rebound /Bladder: no suprapubic tenderness, no CVA or paraspinal tenderness Extermity/Skin: no c/c/e, no obvious rash MSK: FROM x 4 Neuro: CN 2-12 grossly intact, no new focal deficits Psych: calm - Constitutional Vitals: Temp Pulse Resp BP Pulse Ox 98.1 F 70 15 142/77 99 02/27/19 11:03 02/27/19 11:03 02/27/19 11:03 02/27/19 11:03 02/27/19 11:03 General appearance: Present: cachectic. Absent: mild distress Results - Labs CBC & Chem 7: 02/26/19 05:14 02/26/19 05:14 Labs: Laboratory Last Values WBC 9.6 K/mm3 (4.5-11.0) 02/26/19 05:14 RBC 3.99 M/mm3 (3.65-5.03) 02/26/19 05:14 Hgb 13.1 gm/dl (11.8-15.2) 02/26/19 05:14 Hct 38.9 % (35.5-45.6) 02/26/19 05:14 MCV 98 fl (84-94) H 02/26/19 05:14 MCH 33 pg (28-32) H 02/26/19 05:14 MCHC 34 % (32-34) 02/26/19 05:14 RDW 12.9 % (13.2-15.2) L 02/26/19 05:14 Plt Count 326 K/mm3 (140-440) 02/26/19 05:14 Lymph % (Auto) 18.3 % (13.4-35.0) 02/26/19 05:14 [place] % (Auto) 5.7 % (0.0-7.3) 02/26/19 05:14 Eos % (Auto) 0.5 % (0.0-4.3) 02/26/19 05:14 Baso % (Auto) 0.9 % (0.0-1.8) 02/26/19 05:14 Lymph # 1.8 K/mm3 (1.2-5.4) 02/26/19 05:14 [place] # 0.6 K/mm3 (0.0-0.8) 02/26/19 05:14 Eos # 0.0 K/mm3 (0.0-0.4) 02/26/19 05:14 Baso # 0.1 K/mm3 (0.0-0.1) 02/26/19 05:14 Seg Neutrophils % 74.6 % (40.0-70.0) H 02/26/19 05:14 Seg Neutrophils # 7.2 K/mm3 (1.8-7.7) 02/26/19 05:14 Sodium 134 mmol/L (137-145) L 02/26/19 05:14 Potassium 4.7 mmol/L (3.6-5.0) 02/26/19 05:14 Chloride 96.8 mmol/L (98-107) L 02/26/19 05:14 Carbon Dioxide 18 mmol/L (22-30) L 02/26/19 05:14 Anion Gap 24 mmol/L 02/26/19 05:14 BUN 14 mg/dL (9-20) 02/26/19 05:14 Creatinine 0.9 mg/dL (0.8-1.5) 02/26/19 05:14 Estimated GFR > 60 ml/min 02/26/19 05:14 BUN/Creatinine Ratio 16 % 02/26/19 05:14 Glucose 74 mg/dL (75-100) L 02/26/19 05:14 Lactic Acid 1.50 mmol/L (0.7-2.0) 02/25/19 13:56 Calcium 8.9 mg/dL (8.4-10.2) 02/26/19 05:14 Magnesium 2.10 mg/dL (1.7-2.3) 02/25/19 13:56 Total Bilirubin 0.70 mg/dL (0.1-1.2) 02/25/19 13:56 Direct Bilirubin < 0.2 mg/dL (0-0.2) 02/25/19 13:56 AST 15 units/L (5-40) 02/25/19 13:56 ALT 8 units/L (7-56) 02/25/19 13:56 Alkaline Phosphatase 67 units/L (35-129) 02/25/19 13:56 Total Creatine Kinase 104 units/L (55-170) 02/25/19 08:56 Total Protein 6.6 g/dL (6.3-8.2) 02/25/19 13:56 Albumin 3.4 g/dL (3.9-5) L 02/25/19 13:56 Albumin/Globulin Ratio 1.1 % 02/25/19 13:56 Urine Color Yellow (Yellow) 02/25/19 19:33 Urine Turbidity Clear (Clear) 02/25/19 19:33 Urine pH 5.0 (5.0-7.0) 02/25/19 19:33 Ur Specific [place] 1.058 (1.003-1.030) H 02/25/19 19:33 Urine Protein <15 mg/dl mg/dL (Negative) 02/25/19 19:33 Urine Glucose (UA) Neg mg/dL (Negative) 02/25/19 19:33 Urine Ketones 20 mg/dL (Negative) 02/25/19 19:33 Urine Blood Sm (Negative) 02/25/19 19:33 Urine Nitrite Neg (Negative) 02/25/19 19:33 Urine Bilirubin Neg (Negative) 02/25/19 19:33 Urine Urobilinogen < 2.0 mg/dL (<2.0) 02/25/19 19:33 Ur Leukocyte Esterase Neg (Negative) 02/25/19 19:33 Urine WBC (Auto) < 1.0 /HPF (0.0-6.0) 02/25/19 19:33 Urine RBC (Auto) 3.0 /HPF (0.0-6.0) 02/25/19 19:33 U Epithel Cells (Auto) < 1.0 /HPF (0-13.0) 02/25/19 19:33 Urine Mucus Few /HPF 02/25/19 19:33 Active Medications - Current Medications Current Medications: Generic Name Dose Route Start Last Admin Trade Name Freq PRN Reason Stop Dose Admin Acetaminophen 650 mg 02/25/19 15:05 Tylenol PO Q4H PRN Pain MILD(1-3)/Fever >100.5/[place] Albuterol 2.5 mg 02/25/19 15:05 Proventil IH Q4HRT PRN Shortness Of Breath Hydrochlorothiazide 12.5 mg 02/26/19 10:00 02/26/19 11:05 Hctz PO 12.5 mg QDAY LETITIA Administration Sodium Chloride 1,000 mls @ 50 mls/hr 02/27/19 12:00 Nacl 0.9% 1000 Ml IV DIRECT LETITIA Ondansetron HCl 4 mg 02/25/19 15:05 Zofran IV Q8H PRN Nausea And Vomiting Pantoprazole Sodium 40 mg 02/26/19 15:00 02/26/19 17:53 Protonix IV 40 mg QDAY LETITIA Administration Pravastatin Sodium 80 mg 02/25/19 22:00 02/26/19 22:01 Pravachol PO 80 mg QHS LETITIA Administration Prednisone 20 mg 02/26/19 10:00 02/26/19 11:05 Deltasone PO 20 mg QDAY LETITIA Administration Sodium Chloride 10 ml 02/25/19 22:00 02/26/19 22:01 Sodium Chloride Flush Syringe 10 Ml IV 10 ml BID LETITIA Administration Sodium Chloride 10 ml 02/25/19 15:05 Sodium Chloride Flush Syringe 10 Ml IV PRN PRN LINE FLUSH Tramadol HCl 50 mg 02/25/19 15:06 Ultram PO Q6HR PRN Pain Nutrition/Malnutrition Assess - Dietary Evaluation Nutrition/Malnutrition Findings: Nutrition Notes Start: 02/26/19 14:31 Freq: Status: Active Protocol: Document 02/26/19 14:32 RM (Rec: 02/26/19 14:41 RM [id number]) Nutrition Notes Need for Assessment generated from: councilperson,Low BMI Initial or Follow up Assessment Current Diagnosis Hypertension,Stroke, Hyperlipidemia Other Pertinent Diagnosis OA, Esophageal stricture, Dysphagia Current Diet Clear liquid Labs/Tests Reviewed Pertinent Medications Prednisone Height 5 ft 9 in Weight 56.331 kg Usual Body Weight 60 kg Adrian Body Weight (kg) 72.72 BMI 18.3 Weight change and time frame 6.1% wt loss X 1 month Subjective/Other Information Screened for chewing difficulty. NPO in place earlier for upper GI endoscopy. Clear liquid ordered later today. Pt stated that [employer] his appetite was good and that he ate 2 meals daily w/occaisional snacks. Stated UBW was 132 lbs 1 month ago. Noted slight temporal wasting. 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 3 Is patient on ventilator? No Is Patient Ambulatory and/or Out of Bed No REE-([facility]-confined to bed) 1600.176 Kcal/Kg value to use for calculation 34 Approximate Energy Requirements Using 1915 kcal/Kg Calculation Used for Recommendations Kcal/kg Additional Notes Protein Needs: 68-84g (1.2-1. 5g/kg) Fluid Needs: 1 ml/kcal Nutrition Intervention Change Diet Order: Advance diet when medically able Add Supplement/Snack (indicate name/kcal Ensure Clear BID /protein ) Provides kCal: 480 Provides Protein (gm) 16 Goal #1 Diet advancement Anticipated Discharge Needs: Unable to determine at this time Follow-Up By: 03/02/19 Additional Comments Follow for PO and ONS intakes
[2019-02-27] MEDS: NACL 0.9% 1000 ML 1,000 ML IV SCH (11:37)
[2019-02-27] MEDS ORDERED: DIPRIVAN 10 MG/ML IV ONE (12:01)
[2019-02-27] MEDS: HCTZ PO SCH (12:39)
[2019-02-27] MEDS: SODIUM CHLORIDE FLUSH SYRINGE 10 ML IV SCH (12:39)
[2019-02-27] MEDS: PROTONIX IV SCH (12:39)
[2019-02-27] MEDS: DELTASONE PO SCH (12:39)
--- NOTE | 2019-02-27 12:41 | Post Operative Note ---
Date of procedure: 02/27/19 Pre-op diagnosis: Esophaeal stricture Post-op diagnosis: same Findings: 1. Tight esophageal stricture, possibly malignant, from 28 to 30 cm from gums. Dilated to 10 mm, and biopsied. 2. 2 cm hiatal hernia. 3. Otherwise normal EGD. Procedure: EGD with biopsy and balloon dilation Anesthesia: MAC Surgeon: ANDERSON PRO Estimated blood loss: minimal Pathology: list (1. Esophageal stricture) Specimen disposition: to lab Condition: stable Disposition: floor (Clear liquids. Adv to full as tolerated and D/C to home. F/u as outpatient in 1 wk to review pathology.)
--- NOTE | 2019-02-27 13:07 | Operative Report ---
PROCEDURE: Upper endoscopy with balloon dilation and biopsy. PREOPERATIVE DIAGNOSIS: Esophageal stricture. POSTOPERATIVE DIAGNOSIS: Esophageal stricture. SEDATION: MAC by Anesthesia. HISTORY: The patient is a 68-year-old man who presented with dysphagia and 15-pound weight loss. DESCRIPTION OF PROCEDURE: Procedure, indications, risks, and benefits were explained and consent was obtained. The patient was placed in left lateral decubitus position and sedated. JAYSi video upper endoscope was passed through the mouth and oropharynx into the mid esophagus where a tight stricture was encountered. This was balloon dilated from 8 to 10 mm. Subsequently, the stricture was traversed with the scope to the descending duodenum. It was then gradually withdrawn with close inspection of the mucosa. FINDINGS: 1. Tight esophageal stricture and mild proximal dilation. The stricture extended from 28 to 30 cm from the gums where it had friable mucosa within it, which may have been due to the balloon dilation. Biopsies were obtained. Appropriate mucosal tearing was noted. 2. Esophagus distally is otherwise normal with sharp Z-line located at 38 cm from the gums. 3. A 2 cm hiatal hernia extending from 38-40 cm from the gums. 4. Normal appearing stomach. 5. Normal appearing duodenal bulb and duodenum. The patient tolerated the procedure well without immediate complications. IMPRESSION: 1. Tight esophageal stricture that was firm located from 28-30 cm from the gums - biopsied and balloon dilated to 10 mm. It has a malignant appearance to it. 2. Small hiatal hernia. 3. Otherwise, normal endoscopy. PLAN: 1. Follow up biopsies. 2. Repeat dilation in 2 weeks if not malignant. If malignant, we will refer to thoracic surgery. JOB# [id number] C/NTS
[2019-02-28] MEDS: NACL 0.9% 1000 ML 1,000 ML IV SCH (00:58)
[2019-02-28] MEDS: SODIUM CHLORIDE FLUSH SYRINGE 10 ML IV SCH ×2 (01:01→09:42)
[2019-02-28] MEDS: PRAVACHOL PO SCH (01:01)
[2019-02-28 07:02] LABS: Hematocrit 36.3 % (35.5-45.6); Hemoglobin 12.4 gm/dl (11.8-15.2); Mean Corpuscular HGB Conc 34 % (32-34); Mean Corpuscular Volume 98 fl (84-94); Platelet Count 309 K/mm3 (140-440); Red Cell Distribution Width 12.7 % (13.2-15.2)
[2019-02-28 07:22] LABS: BUN/Creatinine Ratio 11; Blood Urea Nitrogen 9 mg/dL (9-20); Calcium 8.6 mg/dL (8.4-10.2); Hemolysis Index 16
--- NOTE | 2019-02-28 08:28 | Discharge Summary ---
Providers - Providers Date of Admission: 02/25/19 15:11 Attending physician: LOY CORDOBA MD 02/25/19 10:48 Consult to Physician [CONS] Urgent Comment: DR JAELYN Hannon/ABDOUL @[id number] Consulting Provider: REGAN HAMMONDS Physician Instructions: Reason For Exam: dysphagia 02/26/19 20:06 Physical Therapy Evaluation and Treat [CONS] Routine Comment: Reason For Exam: weakness [facility] Reason for admission: dysphagia Condition: Good Hospital course: Patient is a 68 yo man with a history of CVA with left side deficits, hypertension, oa and esophageal stricture who presented to [facility] ED with dysphagia and unintentional weight loss. * EGD showed esophageal stricture (unable to pass scope) with deep ulcer and proximal esophageal dilation with meat in it (removed with snare) * CTA chest was negative for mediastinal pathology (mass) (1) Esophageal stricture: GI consulted in ED, advance diet as per GI recommendations, Aspiration precautions. patient underwent endsocpy with the following finding 1. Tight esophageal stricture, possibly malignant, from 28 to 30 cm f rom gums. Dilated to 10 mm, and biopsied. 2. 2 cm hiatal hernia. 3. Otherwise normal EGD. Findings workup indicated the patient verbalized understanding of systems adhesive follow with GI in 1 week to review pathology. Diet on discharge was also discussed in detail. (2) HTN (hypertension) Monitor BP q shift, continue medical management. (3) Osteoarthritis: supportive care. (4) Severe malnutrition Encourage increased protein intake, protein supplementation. (5) Hyponatremia syndrome IVF resuscitation therapy, repeat bmp, (6) Acidosis Current Visit: IVF resuscitation therapy, resolved Disposition: - TO HOME OR SELFCARE Time spent for discharge: 35 min Core Measure Documentation - Palliative Care Palliative Care/ Comfort Measures: Not Applicable - Core Measures Any of the following diagnoses?: none Exam - Physical Exam Narrative exam: - Physical exam Narrative exam: Gen: thin frail, bmi 18.3, NAD, Awake, Alert, Orientated x 2 HEENT: NCAT, EOMI, PERRL, OP Clear Neck: supple, no adenopathy, no thyromegaly, no JVD CVS/Heart: RRR, normal S1S2, pulses present bilaterally Chest/Lungs: CTA B, Symmetrical chest expansion, good air entry bilaterally GI/Abdomen: soft, NTND, good bowel sounds, no guarding or rebound /Bladder: no suprapubic tenderness, no CVA or paraspinal tenderness Extermity/Skin: no c/c/e, no obvious rash MSK: FROM x 4 Neuro: CN 2-12 grossly intact, no new focal deficits Psych: calm - Constitutional Vitals: Temp Pulse Resp BP Pulse Ox 98.6 F 76 20 125/75 100 02/28/19 02:56 02/28/19 02:56 02/28/19 02:56 02/28/19 02:56 02/28/19 02:56 Plan Activity: advance as tolerated, fall precautions Diet: per dietitian instruction, advance as tolerated (full liquid till evaluated in a week by GI) Special Instructions: record daily weights, record daily BP diary Additional Instructions: must follow with GI for pathology review. Follow up with: CHON ALVARADOKEMMERER MD JAH [Primary Care Provider] - 3-5 Days ANDERSON PRO MD [Staff Physician] - 03/05/19 Prescriptions: Pantoprazole [Protonix] 40 mg PO QDAY #30 tablet
[2019-02-28 09:05] VITALS: BP 95/65
[2019-02-28] MEDS: PROTONIX IV SCH (09:42)
[2019-02-28] MEDS: DELTASONE PO SCH (09:42)
[2019-02-28] MEDS: HCTZ PO SCH (09:42)
[2019-02-28] MEDS ORDERED: HEPARIN SUB-Q SCH (12:00)
== END 2019-02-28 13:00 | disposition home or self-care (01) | DRG 393 ==
LOC: ED 08:18 → 2B-ACE 15:11
PROVIDERS: ADMIT Internal Medicine; ATTEND Internal Medicine
PROC: 0DC28ZZ Extirpation of Matter from Middle Esophagus, Via Natural or Artificial Opening Endoscopic (ICD-10-PCS; principal; 2019-02-25)
PROC: 3E0234Z Introduction of Serum, Toxoid and Vaccine into Muscle, Percutaneous Approach (ICD-10-PCS; 2019-02-25)
PROC: 0DB28ZX Excision of Middle Esophagus, Via Natural or Artificial Opening Endoscopic, Diagnostic (ICD-10-PCS; 2019-02-27)
PROC: 0D728ZZ Dilation of Middle Esophagus, Via Natural or Artificial Opening Endoscopic (ICD-10-PCS; 2019-02-27)
DX: T18.128A Food in esophagus causing other injury, initial encounter (principal); E43 Unspecified severe protein-calorie malnutrition; E87.1 Hypo-osmolality and hyponatremia; E87.2 Acidosis; I69.354 Hemiplegia and hemiparesis following cerebral infarction affecting left non-dominant side; K22.10 Ulcer of esophagus without bleeding; K22.2 Esophageal obstruction; I10 Essential (primary) hypertension; F17.200 Nicotine dependence, unspecified, uncomplicated; I48.91 Unspecified atrial fibrillation; E05.90 Thyrotoxicosis, unspecified without thyrotoxic crisis or storm; R13.10 Dysphagia, unspecified; M19.90 Unspecified osteoarthritis, unspecified site; K44.9 Diaphragmatic hernia without obstruction or gangrene; X58.XXXA Exposure to other specified factors, initial encounter; Z82.49 Family history of ischemic heart disease and other diseases of the circulatory system; Z79.82 Long term (current) use of aspirin; Z79.899 Other long term (current) drug therapy; Y93.89 Activity, other specified; Y92.89 Other specified places as the place of occurrence of the external cause; Y99.8 Other external cause status; Z23 Encounter for immunization
CPT/HCPCS: 36415; 70360; 71046; 71275; 74220; 80048; 80076; 81001; 82140; 82550; 83735; 84132; 85025; 85027; 88305; 90732; 96372; G0378; A9270-GY; C1726; C9113; J1644; J2704; J7030; J7512; Q9967

== ENCOUNTER 2019-04-06 09:13 | Emergency (ER) | payer MEDICARE ==
[2019-04-06] MEDS ORDERED: DECADRON IV ONE (09:34)
--- NOTE | 2019-04-06 09:37 | Emergency Department Report ---
ED General Adult HPI - General Chief complaint: Weakness Stated complaint: CANT MOVE LEGS Time Seen by Provider: 04/06/19 09:31 Source: patient, RN notes reviewed, old records reviewed Mode of arrival: Wheelchair Limitations: Physical Limitation - History of Present Illness Initial comments: Primary care Dr.: Dr Vargas/ Gen care Gastroenterology: Dr Lambert Tay Medical oncology: Dr Elicia Benton; [id number] Radiation oncology: Dr Manjula Walter; [phone] This is a 68-year-old gentleman, known to myself previously, history of stroke, residual left-sided weakness, recently diagnosed with esophageal cancer, confirmed on a tissue specimen, at this facility, hypertension, osteoarthritis, malnutrition The patient had a CT scan of his chest last month, which did not demonstrate any metastatic disease. He has not had a PET scan performed at this facility. He is currently receiving radiation therapy and chemotherapy at [facility]. The patient is brought to the hospital by family, and possibly emergency medical services for weakness, bilateral lower extremity weakness, and reported inability to move his both legs. He is not having pain at this time. His symptoms are constant. They do not radiate anywhere. They do not have exacerbating or relieving factors. Prior to my arrival and personal evaluation, the patient was called as a code stroke overhead. He was noted to be moving his bilateral upper extremities. He did have weakness in his lower extremities, but was able to weakly move them. He reports waking up with these symptoms. Very concerned about cord compression. Not a TPA candidate as patient woke up with symptoms. Unlikely to be large vessel occlusion based off of the history of present illness and physical examination. Seen in conjunction with consulting stroke neurologist, Dr. Bryce Puri, who agrees that patient does not meet TPA criteria, and agrees that large vessel occlusion is very unlikely. Does not recommend emergent CT angiogram this time, and I agree with her recommendations. The patient makes no complaint of chest pain or shortness of breath. He makes no complaint of abdominal pain. I suspect deconditioning and debility, however, given history of known esophageal cancer, metastatic disease with cord compression requires exclusion. -: This morning Consistency: constant Improves with: none Worsens with: none - Related Data Previous Rx's Medication Instructions Recorded Last Taken Type Aspirin 325 mg PO QDAY #30 tablet 11/09/13 Unknown Rx Simvastatin 40 mg PO QHS #30 tablet 11/09/13 Unknown Rx hydroCHLOROthiazide [HCTZ] 12.5 mg PO QDAY #30 capsule 11/09/13 Unknown Rx predniSONE [Deltasone] 20 mg PO QDAY #3 tab 01/21/16 Unknown Rx traMADol [Ultram 50 MG tab] 50 mg PO Q6HR PRN #16 tablet 01/21/16 Unknown Rx Pantoprazole [Protonix] 40 mg PO QDAY #30 tablet 02/28/19 Unknown Rx Allergies Allergy/AdvReac Type Severity Reaction Status Date / Time No Known Allergies Allergy Verified 01/21/16 09:34 ED Review of Systems ROS: Stated complaint: CANT MOVE LEGS Other details as noted in HPI Constitutional: malaise Eyes: denies: eye discharge ENT: denies: epistaxis Respiratory: denies: cough Cardiovascular: denies: chest pain Gastrointestinal: denies: nausea Genitourinary: denies: dysuria Musculoskeletal: arthralgia, myalgia Skin: denies: lesions Neurological: weakness. denies: headache Psychiatric: denies: anxiety ED Past Medical Hx - Past Medical History Hx Hypertension: Yes Hx CVA: Yes Hx Congestive Heart Failure: No Hx Diabetes: No Hx Arthritis: Yes Hx Asthma: No Hx COPD: No Additional medical history: CVA 2012 with left sided deficit - Surgical History Additional Surgical History: HERNIATED DISC / CERVICAL SURGERY - Social History Smoking Status: Former Smoker - Medications Home Medications: Home Medications Medication Instructions Recorded Confirmed Last Taken Type Aspirin 325 mg PO QDAY #30 tablet 11/09/13 02/25/19 Unknown Rx Simvastatin 40 mg PO QHS #30 tablet 11/09/13 02/25/19 Unknown Rx hydroCHLOROthiazide [HCTZ] 12.5 mg PO QDAY #30 capsule 11/09/13 02/25/19 Unknown Rx predniSONE [Deltasone] 20 mg PO QDAY #3 tab 01/21/16 02/25/19 Unknown Rx traMADol [Ultram 50 MG tab] 50 mg PO Q6HR PRN #16 tablet 01/21/16 02/25/19 Unknown Rx Pantoprazole [Protonix] 40 mg PO QDAY #30 tablet 02/28/19 Unknown Rx ED Physical Exam - General Limitations: Physical Limitation General appearance: alert, anxious - Head Head exam: Present: atraumatic, normocephalic - Eye Eye exam: Present: normal appearance, EOMI, other (visual acuity intact to finger counting, color perception, reading at a close distance). Absent: nystagmus - ENT ENT exam: Present: normal exam, normal orophraynx, mucous membranes moist, normal external ear exam - Neck Neck exam: Present: normal inspection, full ROM. Absent: tenderness, meningismus - Respiratory Respiratory exam: Present: normal lung sounds bilaterally. Absent: respiratory distress - Cardiovascular Cardiovascular Exam: Present: normal rhythm, tachycardia, normal heart sounds. Absent: systolic murmur, diastolic murmur, rubs, gallop - GI/Abdominal GI/Abdominal exam: Present: soft, other (scaphoid abdomen). Absent: distended, tenderness, guarding, rebound, rigid - Rectal Rectal exam: Present: deferred - Extremities Exam Extremities exam: Present: normal inspection, other (2+ pulses noted in the bilateral upper, lower extremities. Compartments soft. No long bony tenderness. The pelvis is stable.). Absent: tenderness, calf tenderness - Back Exam Back exam: Present: normal inspection, full ROM. Absent: tenderness, CVA tenderness (R), CVA tenderness (L), paraspinal tenderness, vertebral tenderness - Neurological Exam Neurological exam: Present: alert, oriented X3, motor sensory deficit (there is 5 out of 5 strength right arm. There is 4 out of 5 strength left arm. There is 3 out of 5 strength left leg. There is 3 out of 5 strength right leg. Weak plantar reflexes bilateral lower extremities. Sensation intact to pinch in the bilateral lower extremities. Patient withdraws both hip flexors and extends both hip extensors and response to pain and command.) - Psychiatric Psychiatric exam: Present: anxious - Skin Skin exam: Present: warm, dry, intact, normal color. Absent: rash ED Course Vital Signs 04/06/19 04/06/19 09:40 10:21 Temperature 98.2 F Pulse Rate 120 H Respiratory 28 H 22 Rate Blood Pressure 118/78 O2 Sat by Pulse 95 95 Oximetry - Reevaluation(s) Reevaluation #1: 04/06/19 11:04 Differential diagnosis, including the not limited to: Deconditioning, subacute stroke, pneumonia, urinary tract infection, metastatic disease, cord compression Assessment and plan: 68-year-old gentleman, known history of esophageal cancer, currently on chemotherapy, radiation therapy, no evidence of metastatic disease on a CT scan from last month, with progressive weakness of his bilateral lower extremities. There is no back pain at this time. We will obtain an emergent MR of the C, T, L, spine with contrast, at the recommendation from consulting neurology. We will administer empiric steroids. We will give IV fluids. Doubt acute stroke at this time, presentation not consistent. We will attempt to contact his medical oncologist, and see if we can arrange transfer for continuity of care. We will also obtain urinalysis and x-ray of the chest. Long-term goals of care and advanced directives have not been clarified by family at this point in time. Overall long-term prognosis is poor. Reevaluation #2: 04/06/19 11:53 Patient arrested and lost pulses while an MRI. DEVAN ROMAN called overhead. CPR in progress. Patient intubated by anesthesiology, Dr. Dugan, please see her procedure note. Rhythm appears to be pulseless electrical activity. Patient is receiving high- quality CPR, and standard ACLS interventions and medications. Please see code s swapna. Unfortunately, pulses cannot be obtained, and resuscitation efforts were terminated after a prolonged resuscitation. Patient's sister was informed of the patient's . - Procedure Description Procedures done: Video laryngoscopy performed with a curved Ariel 3 blade, which confirms endotracheal tube placements in the trachea. Patient tolerated this procedure without complication. - IO Right Tibia Consent Obtained: emergent situation Time Out Performed: Yes IO Instrument Used to Penetrate the Cortex: battery powered IO drill Patient Tolerated Procedure: well Complications: none ED Medical Decision Making - Lab Data Result diagrams: 04/06/19 09:29 04/06/19 09:29 Vital Signs 04/06/19 04/06/19 09:40 10:21 Temperature 98.2 F Pulse Rate 120 H Respiratory 28 H 22 Rate Blood Pressure 118/78 O2 Sat by Pulse 95 95 Oximetry Lab Results 04/06/19 04/06/19 04/06/19 Range/Units 09:23 09:29 09:29 WBC 6.3 (4.5-11.0) K/mm3 RBC 2.85 L (3.65-5.03) M/mm3 Hgb 9.4 L (11.8-15.2) gm/dl Hct 27.3 L (35.5-45.6) % MCV 96 H (84-94) fl MCH 33 H (28-32) pg MCHC 35 H (32-34) % RDW 13.1 L (13.2-15.2) % Plt Count 461 H (140-440) K/mm3 Add Manual Diff Complete Total Counted 100 Seg Neuts % (Manual) 89.0 H (40.0-70.0) % Band Neutrophils % 0 % Lymphocytes % (Manual) 4.0 L (13.4-35.0) % Reactive Lymphs % (Man) 0 % Monocytes % (Manual) 5.0 (0.0-7.3) % Eosinophils % (Manual) 0 (0.0-4.3) % Basophils % (Manual) 0 (0.0-1.8) % Metamyelocytes % 0 % Myelocytes % 2.0 % Promyelocytes % 0 % Blast Cells % 0 % Nucleated RBC % Not Reportable Seg Neutrophils # Man 5.6 (1.8-7.7) K/mm3 Band Neutrophils # 0.0 K/mm3 Lymphocytes # (Manual) 0.3 L (1.2-5.4) K/mm3 Abs React Lymphs (Man) 0.0 K/mm3 Monocytes # (Manual) 0.3 (0.0-0.8) K/mm3 Eosinophils # (Manual) 0.0 (0.0-0.4) K/mm3 Basophils # (Manual) 0.0 (0.0-0.1) K/mm3 Metamyelocytes # 0.0 K/mm3 Myelocytes # 0.1 K/mm3 Promyelocytes # 0.0 K/mm3 Blast Cells # 0.0 K/mm3 WBC Morphology Not Reportable Hypersegmented Neuts Not Reportable Hyposegmented Neuts Not Reportable Hypogranular Neuts Not Reportable Smudge Cells Not Reportable Toxic Granulation Not Reportable Toxic Vacuolation Not Reportable Dohle Bodies Not Reportable Pelger-Huet Anomaly Not Reportable Drew Rods Not Reportable Platelet Estimate Consistent w auto Clumped Platelets Not Reportable Plt Clumps, EDTA Not Reportable Large Platelets Not Reportable Giant Platelets Not Reportable Platelet Satelliting Not Reportable Plt Morphology Comment Not Reportable RBC Morphology Not Reportable Dimorphic RBCs Not Reportable Polychromasia Not Reportable Hypochromasia Not Reportable Poikilocytosis Not Reportable Anisocytosis Few Microcytosis Not Reportable Macrocytosis Not Reportable Spherocytes Not Reportable Pappenheimer Bodies Not Reportable Sickle Cells Not Reportable Target Cells Not Reportable Tear Drop Cells Not Reportable Ovalocytes Not Reportable Helmet Cells Not Reportable Gu[place] Bodies Not Reportable [place] Rings Not Reportable Med Cells Not Reportable Bite Cells Not Reportable Crenated Cell Not Reportable Elliptocytes Not Reportable Acanthocytes (Spur) Not Reportable Rouleaux Not Reportable Hemoglobin C Crystals Not Reportable Schistocytes Not Reportable Malaria parasites Not Reportable Cristobal Bodies Not Reportable Hem Pathologist Commnt No PT 14.1 (12.2-14.9) Sec. INR 1.03 (0.87-1.13) APTT 25.8 (24.2-36.6) Sec. Thrombin Time (15.1-19.6) Sec. Sodium (137-145) mmol/L Potassium (3.6-5.0) mmol/L Chloride (98-107) mmol/L Carbon Dioxide (22-30) mmol/L Anion Gap mmol/L BUN (9-20) mg/dL Creatinine (0.8-1.5) mg/dL Estimated GFR ml/min BUN/Creatinine Ratio % Glucose (75-100) mg/dL POC Glucose 193 H (70-105) Calcium (8.4-10.2) mg/dL Magnesium (1.7-2.3) mg/dL Total Creatine Kinase (55-170) units/L Troponin T (0.00-0.029) ng/mL 04/06/19 04/06/19 04/06/19 Range/Units 09:29 09:29 09:42 WBC (4.5-11.0) K/mm3 RBC (3.65-5.03) M/mm3 Hgb (11.8-15.2) gm/dl Hct (35.5-45.6) % MCV (84-94) fl MCH (28-32) pg MCHC (32-34) % RDW (13.2-15.2) % Plt Count (140-440) K/mm3 Add Manual Diff Total Counted Seg Neuts % (Manual) (40.0-70.0) % Band Neutrophils % % Lymphocytes % (Manual) (13.4-35.0) % Reactive Lymphs % (Man) % Monocytes % (Manual) (0.0-7.3) % Eosinophils % (Manual) (0.0-4.3) % Basophils % (Manual) (0.0-1.8) % Metamyelocytes % % Myelocytes % % Promyelocytes % % Blast Cells % % Nucleated RBC % Seg Neutrophils # Man (1.8-7.7) K/mm3 Band Neutrophils # K/mm3 Lymphocytes # (Manual) (1.2-5.4) K/mm3 Abs React Lymphs (Man) K/mm3 Monocytes # (Manual) (0.0-0.8) K/mm3 Eosinophils # (Manual) (0.0-0.4) K/mm3 Basophils # (Manual) (0.0-0.1) K/mm3 Metamyelocytes # K/mm3 Myelocytes # K/mm3 Promyelocytes # K/mm3 Blast Cells # K/mm3 WBC Morphology Hypersegmented Neuts Hyposegmented Neuts Hypogranular Neuts Smudge Cells Toxic Granulation Toxic Vacuolation Dohle Bodies Pelger-Huet Anomaly Drew Rods Platelet Estimate Clumped Platelets Plt Clumps, EDTA Large Platelets Giant Platelets Platelet Satelliting Plt Morphology Comment RBC Morphology Dimorphic RBCs Polychromasia Hypochromasia Poikilocytosis Anisocytosis Microcytosis Macrocytosis Spherocytes Pappenheimer Bodies Sickle Cells Target Cells Tear Drop Cells Ovalocytes Helmet Cells Guo-[place] Bodies [place] Rings [place] Cells Bite Cells Crenated Cell Elliptocytes Acanthocytes (Spur) Rouleaux Hemoglobin C Crystals Schistocytes Malaria parasites Cristobal Bodies Hem Pathologist Commnt PT (12.2-14.9) Sec. INR (0.87-1.13) APTT (24.2-36.6) Sec. Thrombin Time 15.3 (15.1-19.6) Sec. Sodium 134 L (137-145) mmol/L Potassium 4.3 (3.6-5.0) mmol/L Chloride 91.4 L (98-107) mmol/L Carbon Dioxide 17 L (22-30) mmol/L Anion Gap 30 mmol/L BUN 24 H (9-20) mg/dL Creatinine 1.2 (0.8-1.5) mg/dL Estimated GFR > 60 ml/min BUN/Creatinine Ratio 20 % Glucose 241 H (75-100) mg/dL POC Glucose 188 H (70-105) Calcium 8.8 (8.4-10.2) mg/dL Magnesium 1.70 (1.7-2.3) mg/dL Total Creatine Kinase 50 L (55-170) units/L Troponin T < 0.010 (0.00-0.029) ng/mL - EKG Data -: EKG Interpreted by Me Rate: tachycardia - EKG Data 04/06/19 11:07 sinus tachycardia, 117 bpm, normal axis, QTC prolonged, motion artifact, no endorsement of chest pain, this is an abnormal EKG, this EKG is not consistent with ST elevation myocardial infarction. - Radiology Data Radiology results: pending Critical care attestation.: If time is entered above; I have spent that time in minutes in the direct care of this critically ill patient, excluding procedure time. ED Disposition Clinical Impression: Leg weakness, bilateral, Cardiac arrest Disposition: DC-20 Is pt being admited?: No Does the pt Need Aspirin: No Condition: Undetermined Referrals: EDILMA TINSLEY MD [Primary Care Provider] - 3-5 Days
[2019-04-06 09:45] LABS: Hematocrit 27.3 % (35.5-45.6); Hemoglobin 9.4 gm/dl (11.8-15.2); Mean Corpuscular HGB Conc 35 % (32-34); Mean Corpuscular Volume 96 fl (84-94); Platelet Count 461 K/mm3 (140-440); Red Blood Count 2.85 M/mm3 (3.65-5.03); Red Cell Distribution Width 13.1 % (13.2-15.2)
[2019-04-06 09:47] VITALS: BP 118/78
[2019-04-06 10:01] LABS: INR 1.03 (0.87-1.13)
[2019-04-06 10:02] LABS: Partial Thromboplastin Time 25.8 Sec. (24.2-36.6)
--- NOTE | 2019-04-06 10:08 | Emergency Department Report ---
ED Neuro Deficit HPI - General Chief Complaint: Weakness Stated Complaint: CANT MOVE LEGS Time Seen by Provider: 04/06/19 09:31 Source: patient Mode of arrival: Wheelchair Limitations: No Limitations - History of Present Illness Initial Comments: [facility] Date of Service: 04/06/19 Impression: Bilateral leg weakness: would consider a spinal cord lesion vs deconditioning. L>R sided weakness likely related to his prior stroke. - - - Not a tpa candidate due to: outisde of time window and symptoms not consistent with stroke Presentation is not suggestive of Large Vessel Occlusive Disease. Thrombectomy would not be recommended. Comments: LKN: 20:00 Door time: 9:13 [employer] contacted: 9:24 [employer] at bedside: 9:30 NIHSS assessment time: 9:30 Recommendations: -MRI C, T, L spine Inpatient neurology consultation Discussed with ED MD Please call with questions Carmita Puri, DO [employer] CC bilateral leg weakness History of Present Illness 68 yo M with history of esophageal cancer and stroke with residual left sided weakness who is presenting with bilateral leg weakness. He was last at his b aseline yesterday when he went to bed at 20:00. Then he woke up this morning and was having difficulty moving both his legs. He denies any new weakness in his upper extremities. Diagnostic: CT head: pending Exam: NIHSS score: 6 Medical Decision Making: - Extensive number of diagnosis or management options are considered above. - Extensive amount of complex data reviewed. - High risk of complication and/or morbidity or mortality are associated with differential diagnostic considerations above. - There may be Uncertain outcome and increased probability of prolonged functional impairment or high probability of severe prolonged functional impairment associated with some of these differential diagnosis. Medical Data Reviewed: 1.Data reviewed include clinical labs, radiology, Medical Tests; 2.Tests results discussed w/performing or interpreting physician; 3.Obtaining/reviewing old medical records; 4.Obtaining case history from another source; 5.Independent review of image, tracing or specimen. Patient was informed the Neurology Consult would happen via TeleHealth consult by way of interactive audio and video telecommunications and consented to receiving care in this manner. - Related Data Home Medications: Previous Rx's Medication Instructions Recorded Last Taken Type Aspirin 325 mg PO QDAY #30 tablet 11/09/13 Unknown Rx Simvastatin 40 mg PO QHS #30 tablet 11/09/13 Unknown Rx hydroCHLOROthiazide [HCTZ] 12.5 mg PO QDAY #30 capsule 11/09/13 Unknown Rx predniSONE [Deltasone] 20 mg PO QDAY #3 tab 01/21/16 Unknown Rx traMADol [Ultram 50 MG tab] 50 mg PO Q6HR PRN #16 tablet 01/21/16 Unknown Rx Pantoprazole [Protonix] 40 mg PO QDAY #30 tablet 02/28/19 Unknown Rx Allergies/Adverse Reactions: Allergies Allergy/AdvReac Type Severity Reaction Status Date / Time No Known Allergies Allergy Verified 01/21/16 09:34 ED Review of Systems ROS: Stated complaint: CANT MOVE LEGS Other details as noted in HPI ED Past Medical Hx - Past Medical History Previous Medical History?: Yes Hx Hypertension: Yes Hx CVA: Yes (resid. LUE weakness/deficit) Hx Congestive Heart Failure: No Hx Diabetes: No Hx of Cancer: Yes (esophageal cancer with mets/radiation) Hx Arthritis: Yes Hx Asthma: No Hx COPD: No Additional medical history: CVA 2012 with left sided deficit. coronary stent - Surgical History Past Surgical History?: Yes Hx Coronary Stent: Yes Additional Surgical History: HERNIATED DISC / CERVICAL SURGERY - Social History Smoking Status: Unknown if ever smoked - Medications Home Medications: Home Medications Medication Instructions Recorded Confirmed Last Taken Type Aspirin 325 mg PO QDAY #30 tablet 11/09/13 02/25/19 Unknown Rx Simvastatin 40 mg PO QHS #30 tablet 11/09/13 02/25/19 Unknown Rx hydroCHLOROthiazide [HCTZ] 12.5 mg PO QDAY #30 capsule 11/09/13 02/25/19 Unknown Rx predniSONE [Deltasone] 20 mg PO QDAY #3 tab 01/21/16 02/25/19 Unknown Rx traMADol [Ultram 50 MG tab] 50 mg PO Q6HR PRN #16 tablet 01/21/16 02/25/19 Unknown Rx Pantoprazole [Protonix] 40 mg PO QDAY #30 tablet 02/28/19 Unknown Rx ED Neuro Physical Exam - General Limitations: No Limitations Suspected Stroke: No - NIHSS Assessment Interval: Baseline 1a. Level of Consciousness: alert/keenly responsive 1b. LOC Questions: answers both correctly 1c. LOC Commands: performs tasks correctly 2. Best Gaze: normal 3. Visual: no visual loss 4. Facial Palsy: normal symmetrical movement 5b. Motor Arm Right: no drift 5a. Motor Arm Left: drift 6a. Motor Leg Left: no gravity effort 6b. Motor Leg Right: some gravity effort 7. Limb Ataxia: absent 8. Sensory: normal 9. Best Language: no aphasia 10. Dysarthria: normal 11. Extinction/Inattention: no abnormality Total Score: 6 Stroke Severity: Moderate Stroke ED Course Vital Signs 04/06/19 09:40 Temperature 98.2 F Pulse Rate 120 H Respiratory 28 H Rate Blood Pressure 118/78 O2 Sat by Pulse 95 Oximetry - Lab Data Result diagrams: 04/06/19 09:29 Lab Results 04/06/19 04/06/19 04/06/19 Range/Units 09:23 09:29 09:29 WBC 6.3 (4.5-11.0) K/mm3 RBC 2.85 L (3.65-5.03) M/mm3 Hgb 9.4 L (11.8-15.2) gm/dl Hct 27.3 L (35.5-45.6) % MCV 96 H (84-94) fl MCH 33 H (28-32) pg MCHC 35 H (32-34) % RDW 13.1 L (13.2-15.2) % Plt Count 461 H (140-440) K/mm3 PT 14.1 (12.2-14.9) Sec. INR 1.03 (0.87-1.13) APTT 25.8 (24.2-36.6) Sec. POC Glucose 193 H (70-105) 04/06/19 Range/Units 09:42 WBC (4.5-11.0) K/mm3 RBC (3.65-5.03) M/mm3 Hgb (11.8-15.2) gm/dl Hct (35.5-45.6) % MCV (84-94) fl MCH (28-32) pg MCHC (32-34) % RDW (13.2-15.2) % Plt Count (140-440) K/mm3 PT (12.2-14.9) Sec. INR (0.87-1.13) APTT (24.2-36.6) Sec. POC Glucose 188 H (70-105) Critical care attestation.: If time is entered above; I have spent that time in minutes in the direct care of this critically ill patient, excluding procedure time. ED Disposition Clinical Impression: Leg weakness, bilateral Disposition: DC-09 OP ADMIT IP TO THIS HOSP Is pt being admited?: Yes Condition: Stable
[2019-04-06 10:12] LABS: BUN/Creatinine Ratio 20; Blood Urea Nitrogen 24 mg/dL (9-20); Calcium 8.8 mg/dL (8.4-10.2); Hemolysis Index 5
[2019-04-06 10:43] LABS: Basophils % (Manual) 0 % (0.0-1.8); Eosinophils % (Manual) 0 % (0.0-4.3); Myelocytes # (Manual) 0.1 K/mm3; Total Cells Counted 100
[2019-04-06 10:44] LABS: Anisocytosis Few; Platelet Estimate Consistent w Auto
[2019-04-06] MEDS ORDERED: NACL 0.9% 500 ML 500 ML IV ONE (11:03)
--- NOTE | 2019-04-06 11:15 | Cat Scan Report ---
CT HEAD WITHOUT CONTRAST: HISTORY: Neurological deficits. TECHNIQUE: Sequential 2.5mm CT images. COMPARISON: 10/20/13. FINDINGS: Cerebral Parenchyma: Mild diffuse volume loss is evident. Chronic infarct in the right henderson radiata measures 2.7 x 0.7 cm in axial plane. Chronic infarct in the right parietal lobe measures up to 2.5 x 4.2 cm. There are mild chronic ischemic changes in the white matter of the right cerebral hemisphere. No areas of acute ischemia are identified on noncontrast CT. Cerebellum: Within normal limits. Brainstem: Within normal limits. Ventricles: Normal. Sella: Normal. Extra-axial spaces: Normal. Basal Cisterns: Normal. Intracranial Hemorrhage: None. Midline Shift: None. Calvarium: Normal. Sinuses: Normal. Mastoid Air Cells: Normal. Visualized Orbits: Normal. IMPRESSION: No acute intracranial process is identified. Volume loss and chronic infarcts as described. Comment: This examination is just presented to me for interpretation. I was not notified that this was a stroke protocol. These findings were discussed with Dr. Ravi in the emergency department at 1106 hrs.
[2019-04-06] MEDS ORDERED: ADRENALIN ONE (11:20)
[2019-04-06] MEDS ORDERED: D5/0.45NS 1,000 ML IV SCH (12:00)
--- NOTE | 2019-04-06 12:45 | Magnetic Resonance Report ---
MRI LUMBAR SPINE WITHOUT CONTRAST: 04/06/19 CLINICAL: Neurological deficits. Questionable cord compression. TECHNIQUE: Sagittal and axial T1 and T2, and sagittal STIR sequences on a 1.5 Alejandra magnet. FINDINGS: Mild levoscoliosis centered at L3-4. Normal vertebral body height and alignment. The conus medullaris is normal and terminates at L1. Disc space narrowing at L5-S1. The rest of the disc spaces are intact. Decreased T2 disc signal at L3-4 and L4-5. Normal overall marrow signal. Modic 2 endplate signal changes at L5-S1. L1-2: Intact. L2-3: Intact. L3-4: Mild circumferential disc bulge. Bilateral facet hypertrophy producing moderate bilateral neural foraminal narrowing. Large anterior osteophytes. L4-5: Very large anterior and left foraminal osteophytes. Small broad-based central disc protrusion. Bilateral facet hypertrophy and mild bilateral ligamentum flavum hypertrophy. Mild right neural foraminal stenosis and moderate left neural foraminal narrowing produced by osteophytes. L5-S1: Degeneration of the disc and loss of the disc space. Small broad-based central disc protrusion. Moderate lateral neural foraminal narrowing produced by osteophytes. Atherosclerotic disease of the aorta but no aneurysm or dissection. IMPRESSION: Multilevel degenerative disc disease with multilevel neural foraminal narrowing primarily produced by left-sided osteophytes. No compression of the conus medullaris.
--- NOTE | 2019-04-06 14:46 | Event Note ---
Date: 04/06/19 (Emergent Intubation Note) Code ahsan called overhead to MRI at approx 1115. I arrived to find patient unresponsive with CPR in progress, no advanced airway in place. I began ventilation with AMBU bag while RT prepared intubation equipment. I then intubated the patient with MAC 3, grade 2 view, 1 attempt. 7.5 oETT passed easily and endotracheal placement confirmed with bilateral breath sounds. Brief interruption to chest compressions for confirmation of placement which lasted <10 secs. Time of intubation approx. 1121. Departed patient's room at approx. 1126. Additional resuscitative efforts ongoing per direction of EM physician at bedside.
== END 2019-04-06 14:34 ==
LOC: ED 09:13
DX: I46.9 Cardiac arrest, cause unspecified (principal); I10 Essential (primary) hypertension; M19.90 Unspecified osteoarthritis, unspecified site; Z86.73 Personal history of transient ischemic attack (TIA), and cerebral infarction without residual deficits; Z87.891 Personal history of nicotine dependence; Z79.899 Other long term (current) drug therapy; Z95.5 Presence of coronary angioplasty implant and graft; Z85.01 Personal history of malignant neoplasm of esophagus
CPT/HCPCS: 36415; 36680; 70450; 72148; 80048; 82550; 82962; 83735; 84484; 85007; 85025; 85610; 85670; 85730; 92950; 93005; 93010; 96374; 99285; J0171; J1100